=== PATIENT | female | born 1985 | race Hispanic/Latino ===

== ENCOUNTER 2022-05-08 14:13 | Emergency (ER) | payer OTHER ==
[~2022-05-08] VITALS: Ht 157.5 cm; Wt 88.1 kg
[2022-05-08] VITALS (10 sets, daily range): BP systolic 78–131; BP diastolic 48–87
[~2022-05-08 14:13] MED LIST: REGLAN10 MG OR
[2022-05-08] MEDS ORDERED: FARXIGA10 MG PO (14:42)
[2022-05-08] MEDS ORDERED: AZASAN100 MG PO (14:45)
[2022-05-08 15:06] LABS: IMMATURE GRANULOCYTES 0.2 % (0.0-5.0); MEAN CORPUSCULAR HGB CONC 33.3 g/dL CAL (32.0-36.0); NEUT# 2.4 thou/uL (2.00-7.15); RED BLOOD COUNT 4.4 mill/uL (4.20-5.60); RED CELL DISTRI WIDTH 12.7 % (11.5-15.5)
[2022-05-08 15:10] LABS: HEMATOCRIT 43.6 % (37.0-47.0); HEMOGLOBIN 14.5 g/dl (12.0-16.0); MEAN CELL VOLUME 99.1 fL CALC (80.0-100.0)
[2022-05-08 15:11] LABS: URINE BILIRUBIN - DIPSTICK NEGATIVE (NEGATIVE); URINE BLOOD DIPSTICK TRACE-INTACT (NEGATIVE); URINE COLOR YELLOW; URINE GLUCOSE - DIPSTICK >=1000 mg/dL (NEGATIVE); URINE KETONE NEGATIVE (NEGATIVE); URINE LEUK ESTERASE NEGATIVE (NEGATIVE); URINE PROTEIN - DIPSTICK TRACE mg/dL (NEG-TRACE); URINE UROBILINOGEN - DIPSTICK 0.2 E.U./dL (0.2)
[2022-05-08 15:15] LABS: ALBUMIN 4.1 g/dL (3.2-5.0); ALKALINE PHOSPHATASE 92 u/l (38-126); BUN 15 mg/dL (7-17); BUN/CREATININE RATIO 25 (12-20 (CALC)); CHLORIDE 107 mmol/l (95-108); CREATININE 0.6 mg/dL (0.5-1.0); GFR FOR AFR.AMER. > 60 ML/MIN (>=60 (CALC)); GFR OTHER RACES > 60 ML/MIN (>=60 (CALC)); LIPASE 121 u/l (23-300); POTASSIUM 3.8 mmol/l (3.5-5.1); SGOT/AST 168 u/l (14-36); SODIUM 141 mmol/l (137-146); TOTAL PROTEIN 8.2 g/dL (6.3-8.2)
[2022-05-08 15:16] LABS: ANION GAP 11 (6-22 (CALC)); BILIRUBIN, TOTAL 0.3 mg/dL (0.0-1.4); CARBON DIOXIDE 27 mmol/l (22-30)
[2022-05-08 15:21] LABS: URINE NITRITE - DIPSTICK NEGATIVE (Negative)
== END 2022-05-08 16:57 | disposition home or self-care (01) | DRG 605 ==
LOC: ED 14:13
PROVIDERS: Family Medicine
DX: S00.511A Abrasion of lip, initial encounter (principal); M25.561 Pain in right knee; M25.562 Pain in left knee; M79.631 Pain in right forearm; M25.521 Pain in right elbow; E11.9 Type 2 diabetes mellitus without complications; V44.5XXA Car driver injured in collision with heavy transport vehicle or bus in traffic accident, initial encounter